=== PATIENT | male | born 1970 | race Caucasian/White ===

== ENCOUNTER → 2019-01-03 07:50 | Outpatient (CLI) | payer OTHER, SELFPAY ==
--- NOTE | 2019-01-03 08:51 | P.PCN_ITS ---
Cardiac Stress Test Report Referral & Results Date Patient Seen: 01/03/19 Time Patient Seen: 08:30 Requesting provider: Carol Hunter Indication: CAD Rest ECG: NSR Procedure Note: Today following both written and verbal informed consent the patient was exercised according to a standard Jr protocol patient went for a total of 9 minutes achieving a maximum heart rate of 154 maximum systolic blood pressure of 132. This is approximately 10.1 METs. Exercise was terminated at this point because of fatigue. Patient was also given Cardiolite through a previously started Hep-Lock IV by the nuclear medical technologist approximately 1 minute prior to the cessation of exercise. No signs or symptoms of angina. No change in rhythm. Slow BP response to exercise; low resting blood pressure. ED +5% on sedentary scale. Impression: Low probability for ischemia. Will await perfusion imaging. Please note: Actual ECG tracings can be found in the PACS system.
--- NOTE | 2019-01-04 19:32 | DI.NM.S_ITS ---
DATE OF SERVICE: 01/03/2019 PROCEDURE: Exercise perfusion study. INDICATIONS: History of non-ST NJ with a history of RCA stent placement, LAD stent placement, and residual LAD disease. RADIOPHARMACEUTICAL: 26.0 mCi technetium-99m Myoview IV was injected at stress and 24.6 mCi technetium-99m Myoview IV was injected at rest. CARDIAC STRESS: Patient underwent exercise perfusion study under the supervision of an attending staff. He walked on Jr protocol for 9 minutes 03 seconds, achieved 90% of target heart rate, 10.1 METs of workload, and positive ED of 15% on active scale. Initial blood pressure was 100/80. Peak blood pressure, 132/84. Baseline EKG revealed sinus rhythm. Stress EKG did not reveal any convincing ischemia or significant arrhythmias. Patient felt fatigue. No anginal symptoms. RAW DATA: There increase of diaphragmatic activity. GATED STUDY: Stress LV ejection fraction 68% without any obvious wall motion abnormalities. Resting end-diastolic volume is 130 mL. No transient ischemic dilatation. TID ratio is 0.84, which is within normal limits. Lung/heart ratio is 0.47, which is mildly abnormal. MYOCARDIAL PERFUSION SCAN: Resting supine images revealed small-sized mildly decreased perfusion of basal inferior wall. Stress supine images revealed small- sized mildly decreased perfusion of inferior wall and mid anterior wall. In prone images, except basal inferior defect, rest of the perfusion defects got normalized. No convincing reversible ischemia. 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 No convincing reversible ischemia. Patient walked on Jr protocol for 9 minutes 03 seconds, achieved 10.1 METs of workload. No ischemic EKG changes. No significant arrhythmias. No anginal symptoms. Stress left ventricular (LV) ejection fraction 68%. Lung/heart ratio of 0.47. Consider 2-D echocardiogram to make sure there is no diastolic dysfunction or valvular pathology. As far as perfusion scan is concerned, this is an overall low risk myocardial perfusion scan. Jhonathan Quinonez - AMELIE/william/ doc#: [id number]/job#: [id number] dd: 01/04/2019 17:41:00 dt: 01/04/2019 18:59:00 DICTATING MD/COPIES TO: Pacheco Mustafa MD COPIES MNE: OPAL
== END ==
PROVIDERS: Visit Provider Internal Medicine Cardiovascular Disease
DX: I25.10 Atherosclerotic heart disease of native coronary artery without angina pectoris (principal); I25.2 Old myocardial infarction; Z95.5 Presence of coronary angioplasty implant and graft
CPT/HCPCS: 78452; 93016; 93017; 93018; A9502

== ENCOUNTER → 2022-05-26 06:46 | Outpatient (CLI) | payer OTHER, SELFPAY ==
--- NOTE | 2022-05-26 | DI.US.S_ITS ---
PROCEDURE: US ARTERIAL DUPLEX LE BI INDICATIONS: PVD TECHNIQUE: Color and pulse Doppler interrogation was performed of both lower extremity arterial systems, with image documentation. COMPARISON: None. FINDINGS: Right lower extremity: Common femoral artery: 74 cm/sec, with triphasic flow. Deep femoral artery: 52 cm/sec, with biphasic flow. Proximal superficial femoral artery: 70 cm/sec, with triphasic flow. Mid superficial femoral artery: 66 cm/sec, with triphasic flow. Popliteal artery: 45 cm/sec, with triphasic flow. Posterior tibial artery: 60 cm/sec, with triphasic flow. Anterior tibial artery/dorsalis pedis: 48 cm/sec, with triphasic flow. River-scale imaging description: Minimal plaque. A left common iliac artery stent is not well visualized due to overlying gas. Left lower extremity: Common femoral artery: 47 cm/sec, with triphasic flow. Deep femoral artery: 34 cm/sec, with triphasic flow. Proximal superficial femoral artery: 45 cm/sec, with triphasic flow. Mid superficial femoral artery: 39 cm/sec, with triphasic flow. Distal superficial femoral artery: 37 cm/sec, with triphasic flow. Popliteal artery: 21 cm/sec, with triphasic flow. Posterior tibial artery: 34 cm/sec, with triphasic flow. Anterior tibial artery/dorsalis pedis: 37 cm/sec, with triphasic flow. River-scale imaging description: Minimal plaque. IMPRESSION: 1. No significant stenosis in the lower extremities bilaterally. 2. Left common iliac artery stent is not well visualized but has normal flow distally and therefore is likely patent. Dictated by: Rob Hernandez M.D. on 05/26/2022 at 8:48 Approved by: Rob Hernandez M.D. on 05/26/2022 at 9:02
== END ==
PROVIDERS: Referring Provider Internal Medicine Cardiovascular Disease; Visit Provider Internal Medicine Cardiovascular Disease
DX: I73.9 Peripheral vascular disease, unspecified (principal)
CPT/HCPCS: 93925